=== PATIENT | male | born 2000 | race African-American/Black ===

== ENCOUNTER 2025-04-10 17:25 | Emergency (ER) | payer OTHER, SELFPAY ==
[2025-04-10] VITALS (9 sets, daily range): BP systolic 123–154; BP diastolic 71–95; PULSE 65–84; RESP 15–20; TEMP 36.4; O2SAT 97–100; BMI 20.8
--- NOTE | 2025-04-10 17:50 | RAD_ITS ---
PROCEDURE: CHEST 1 VIEW (PORTABLE) 04/10/2025 REASON FOR EXAM: CHEST PAIN TECHNIQUE: Frontal view of the chest. FINDINGS: No focal consolidation. No pleural effusion or pneumothorax. Cardiac silhouette is within normal limits. No acute fractures. RAD/Chest 1 View (Portable) IMPRESSION: No focal consolidations. Reading Location: [id number]
--- NOTE | 2025-04-10 17:51 | EKG12_ITS ---
Test Reason : Blood Pressure : */* mmHG Vent. Rate : 69 BPM Atrial Rate : 70 BPM P-R Int : 150 ms QRS Dur : 96 ms QT Int : 396 ms P-R-T Axes : 65 96 66 degrees QTcB Int : 424 ms Normal sinus rhythm with sinus arrhythmia Rightward axis Borderline ECG Confirmed by LUIS GILLIAM, MODESTO ([id number]), staff editor CAM TRACY ([id number]) on 04/11/2025 8:38:37 AM Referred By: Confirmed By: MODESTO SMITH MD
--- NOTE | 2025-04-10 18:11 | EDS_ITS ---
HPI History of Present Illness Chief Complaint: Chest Pain [facility] Medical History no medical history Home Medications ?Medication ?Instructions ?Recorded ?Last Taken ?Type betamethasone dipropionate 0.05 % 1 appful TP BID ##15 12/15/16 Unknown Rx topical cream prednisone 20 mg tablet 60 mg (3 x 20 mg) PO DAILY # #12 12/15/16 Unknown Rx Allergy/AdvReac Type Severity Reaction Status Date / Time bee venom protein (honey bee) Allergy Angioedema Verified 04/10/25 17:26 Social History Smoking Status: Never smoker EXAM Physical Exam Const Vital Signs: 04/10/25 17:27 04/10/25 17:48 04/10/25 17:51 Temperature 97.5 F L Temperature Source Temporal Pulse Rate 66 Respiratory Rate 20 H Respiratory Effort Normal Blood Pressure 123/80 H Blood Pressure Mean 94 Pulse Ox 97 Oxygen Delivery Method Room Air Room Air 04/10/25 17:56 04/10/25 18:00 04/10/25 18:15 Temperature Temperature Source Pulse Rate 70 68 68 Respiratory Rate 15 19 H 16 Respiratory Effort Blood Pressure 150/71 H 144/82 H Blood Pressure Mean 93 99 Pulse Ox 100 100 100 Oxygen Delivery Method Room Air Room Air 04/10/25 18:30 04/10/25 18:45 04/10/25 19:00 Temperature Temperature Source Pulse Rate 74 68 Respiratory Rate 17 18 Respiratory Effort Blood Pressure 147/81 H 154/85 H 154/85 H Blood Pressure Mean 98 103 108 Pulse Ox 98 100 Oxygen Delivery Method Room Air Room Air 04/10/25 20:00 Temperature Temperature Source Pulse Rate 84 Respiratory Rate 18 Respiratory Effort Blood Pressure 150/95 H Blood Pressure Mean 113 Pulse Ox 100 Oxygen Delivery Method Room Air MDM MDM MDM Narrative Medical decision making narrative: HISTORY OF PRESENT ILLNESS: Chief complaint: Chest pain 25-year-old male presents with chest pain. States it started at rest and radiates down his arm. He further states pain is not exertional. He denies pain at this time. Denies cough fever chills. Denies leg swelling. Denies bleeding diathesis. Denies falls or trauma. The patient denies recent surgery in the last 4 weeks or immobilization in the last 3 days, denies previous diagnosis of DVT or PE, hemoptysis, unilateral leg swelling or malignancy with treatment the last 6 months or palliative. No estrogen use noted. Patient denies sudden onset of pain, no tearing sensation, no migratory symptoms, no new numbness, weakness or loss of sensation. Patient denies family history or personal history of Connective tissue disorders (Marfan's Syndrome, Sammy Danlos etc) REVIEW OF SYSTEMS: Pertinent positives: Chest pain Pertinent negatives: Shortness of breath, cough PHYSICAL EXAM: Nursing triage notes reviewed, Vital signs reviewed Constitutional: please see [facility] HENT: MMM Eyes: Pupils equal round and reactive to light, Extraocular muscles intact Neck: No stridor, no JVD, full neck ROM Lungs: Clear to auscultation, No wheezing or rales. No increased work of breathing, no conversational dyspnea, no accessory muscle use, no nasal flaring. No respiratory distress noted Heart: Regular rate and rhythm, No murmurs, No rubs and No gallops, 2+ distal pulses (radial, femoral, posterior tibial) in all extremities Abdomen: Soft, there is no tenderness, rigidity, rebound or guarding, no obvious peritoneal signs, no palpable pulsatile abdominal masses, no auscultated abdominal bruit : No CVAT Extremities: No edema Neuro: No new focal neurological deficits, cranial nerves II through XII intact, 5/5 strength in all present extremities. Intact sensation to light touch in all present extremities, 2+ reflexes bilateral patella tendons. Skin: No rash or lesions noted MEDICAL DECISION MAKING: Chief Complaint: please see HPI External records reviewed: Reviewed Factors affecting care: none Social determinants of health: n denies illicit drug use History obtained from others: Stepmother Consults: none [facility] Narrative: Patient was initially hemodynamically stable, afebrile and nontoxic-appearing. Saturating at 97 on room air. Exam without focal cardiopulmonary abnormalities. No stigmata of VTE, CHF or dissection initial exam. I considered the following differential diagnosis: Musculoskeletal pain, costochondritis, ACS, arrhythmia, anemia, electrolyte disturbance, PE, aortic dissection I obtained broad lab and imaging evaluation to further determine if the patient was suffering from a life-threatening etiology. ALL IMAGES (IF OBTAINED) HAVE BEEN PERSONALLY REVIEWED AND INTERPRETED BY MYSELF. EKG with normal sinus rhythm rate of 69, normal axis, normal intervals, no STEMI, no sign of ARVD, Brugada syndrome or WPW High-sensitivity troponin is negative, no evidence of myocardial ischemia x 2 which effectively rules out ACS per [facility] high-sensitivity protocol CBC without leukocytosis, severe anemia, no thrombocytopenia. BMP without evidence of significant electrolyte abnormalities, no anion gap, no acute kidney injury. I have personally reviewed the patient's chest x-ray. Chest x-ray is unremarkable for pulmonary edema, pneumothorax, pneumonia or focal cardiopulmonary abnormality. The synthesis of the patient's history, physical exam, labs images suggest no acute life-limiting etiology. On reassessment patient remained chest pain-free. His vitals remained stable. I considered pulm embolism and aortic dissection as potential etiologies given patient's reported chest pain these diagnoses are not consistent with history and physical exam. The patient and/or family, caregivers express understanding. The patient and/or family, caregivers agrees with the plan. Shared decision making: I will have a discussion with the patient and or visitors regarding risk/benefits of further testing or admission. They will be made aware of of the risk/benefits inherent in this decision they will be given the opportunity to voice understanding. Total critical care time today provided was at least 0 minutes. This excludes separately billable procedures. Critical care time (if documented) is secondary to the patient having high probability of clinically significant/life threatening deterioration in the patient's condition which required my urgent intervention. Impression: 1. Chest pain Dispo: Discharge This note was generated with [employer] dictation software. It may contain incorrect words, spelling, and punctuation that were not noted in review of the chart prior to signing. Lab Data Labs: Laboratory Results - last 24 hr 04/10/25 04/10/25 17:45 19:38 WBC 9.1 RBC 5.14 Hgb 13.8 Hct 39.9 L MCV 77.6 L MCH 26.8 L MCHC 34.6 RDW Std Deviation 38.8 RDW Coeff of Ruel 13.7 Plt Count 219 MPV 9.9 Immature Gran % (Auto) 0.100 Neut % (Auto) 71.0 H Lymph % (Auto) 21.9 Briscoe % (Auto) 5.8 Eos % (Auto) 1.0 Baso % (Auto) 0.2 Absolute Neuts (auto) 6.5 Absolute Lymphs (auto) 2.00 Nucleated RBC % 0 Sodium 140 Potassium 3.8 Chloride 102 Carbon Dioxide 22.7 Anion Gap 15 BUN 14 Creatinine 1.02 Estim Creat Clear Calc 122.57 Est GFR (MDRD) Non-Af 105 BUN/Creatinine Ratio 13.9 Glucose 128 H Calcium 9.2 Troponin T High Sens < 6 Troponin T Hi Sens 2 Hr < 6 Radiography Diagnostic Testing: Clinical Impression(s) from Imaging Studies Chest X-Ray 04/10/25 17:50 IMPRESSION: No focal consolidations. Reading Location: [facility] Discharge Plan Triage Chief Complaint: Chest Pain ED Provider: Alexx Steinberg Dx/Rx/DC Orders Instructions: ED Chest Pain, Uncertain Cause Prescriptions: No Action prednisone 20 MG tablet 60 mg PO DAILY Qty: 12 0RF betamethasone dipropionate 15 GM cream 1 appful TP BID Qty: 15 0RF Primary Care Provider: Giovany Hughes Referrals: Giovany Hughes MD [Primary Care Provider, Pediatrics] Activity Restrictions/Additional Instructions: Thank you for trusting us with your care today! Your labs images were reassuring. Specifically showed no sign of heart damage, lung damage or other life-threatening pathologies. The cause of your symptoms remains unclear however it does not represent something that requires hospitalization or other testing at this time. You are safe for discharge home Please take Tylenol (2 pills, 650 mg), ibuprofen (2 pills, 400 mg) every 6 hours as needed for pain and fever control. Please return to the emergency department if your symptoms change or worsen. Please follow with your primary care physician for further outpatient evaluation and management. Print Language: Turkmen Disposition Disposition: Home, Self Care
[2025-04-10 18:18] LABS: Hematocrit 39.9 % (40-54); Hemoglobin 13.8 g/dL (13.0-16.5); Immature Granulocytes Count 0.010 X10^3/uL (0.0-0.0); Mean Corp Hgb Conc 34.6 g/dL (32-36); Mean Corpuscular Volume 77.6 fL (80-94); Mean Platelet Vol. 9.9 fl (6.2-12.0); NRBC Flagged by Analyzer 0 % (0-5); Platelet Count 219 K/mm3 (150-450); RBC Distribution Width CV 13.7 % (11.6-14.6); RBC Distribution Width SD 38.8 fl (35.1-43.9); Red Blood Count 5.14 M/mm3 (4.6-6.2); White Blood Count 9.1 K/mm3 (4.4-11.0)
[2025-04-10 18:28] LABS: Anion Gap 15 (5-15); BUN 14 mg/dL (4-19); BUN/Creat Ratio 13.9 RATIO (10-20); Calcium,Total 9.2 mg/dL (7.6-11.0); Carbon Dioxide 22.7 mmol/L (21.0-32.0); Chloride 102 mmol/L (98-108); Estimated Creatinine Clearance 122.57 ml/min (50-250); Glucose 128 mg/dL (70-99); Potassium 3.8 mmol/L (3.3-5.1); Troponin T High Sensitivity < 6 ng/L (<=22)
--- OUTSIDE RECORDS SUMMARY | 2025-04-10 18:48 | XMS RPT_ITS | CCD ---
Author Organization [facility] CliniSyut Care Team Providers Care Police Liaison Officer Name Role Phone GIOVANY HUGHES Unavailable Unavailable MEGHAN TOLEDO ([facility]) Unavailable Unavailable Jimmy Harper Unavailable Unavailable Giovany Hughes Unavailable Unavailable Allergies Allergy Classification Reported Allergen(s) Allergy Type Date of Onset Reaction(s) Facility (1 source) bee venom protein (honey bee) Drug allergy (disorder) 12-15-2016 [facility] Repository Problems Problem Classification Problem Date Documented Da te Episodic/Chronic Unclassified (1 source) Unknown / UNK(Unknown) Onset: 03-28-2017 Results Test Name Value Interpretation Reference Range Facility OV 04-29-2017 CNOV Office Visit (PEDSWS) -ABEL PLASCENCIA ([id number]) 01 MDate Time Provider Xxkwpdhnjc96/24/17 8:00 AM MEGHAN TOLEDO (MATTHEW) PEDSWS During your visit today, we recorded the following information about you: Temperature Pulse Respiration Blood pressure 97.3 degrees 84/minute 16/minute 120/60 Weight Height 66.3 kg 1.87 Rizwana Toledo CNP 04/29/2017 8:40 AM Nbftwk28 year old male presents for a routine 12+ year check-up. [] GENERAL QUESTIONS color enhancedsectionPatient concerns: NONEParental concerns: NONEDiet: milk: 2%; balanced diet; specific issues: NONEStools: NORMAL (soft and appropriately sized)Urine: NO PROBLEMSFluorideWater: uses significant amount of ANDquot;cityANDquot; water from: [facility] - optimum level (use recommendations for levels of ANDgt;0.6 ppm),adjusted/purchase (2011)Prescription: age 12-16 years - not using prescribed fluorideOngoing subspecialty care: NONEOngoing ancillary care: NONESchool/etc: 10th, doing well, grades A-B, C.Interests ANDamp; Activities: basketball, trackSignificant stresses: No [] SPORTS QUESTIONS color enhancedsectionHistory of seizures: NoHistory of concussion: NoHistory of syncope: NoHistory of heart problems: NoHistory of hypertension: NoHistory of asthma: NoHistory of single kidney: NoHistory of skeletal problems: NoHistory of any significant injury: Yes, overdose as toddlerFamily history of either heart problems or sudden ANDlt;age 40 years: No MEDICAL HISTORYPast medical history:IMPORTEDPAST MEDICAL HISTORYDiagnosis Date- 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 4th digit right handIMPORTEDPAST SURGICAL HISTORYProcedure Laterality Date- CIRCUMCISION,OTHR,- PAST SURGICAL HISTORY OF 2001 Had bump removed from buttock areaFamily history:IMPORTEDFAMILY HISTORYProblem Relation Age of Onset- Hypertension Mother- GI Mother Acid Reflux- Other [OTHER] Mother Scoliosis (mild)- None Father- Diabetes Maternal Grandmother- Breast Cancer Maternal Grandmother- Cancer Maternal Grandmother Thyroid- Hypertension Maternal Grandfather [] SOCIAL HISTORY colorenhanced sectionSexual activity: NoSubstance abuse and smoking: NoHigh risk behaviors: NONEMental health: POSITIVE OUTLOOKSocial history obtained when patient was alone [] MISCELLANEOUS colorenhanced sectionDifficulties with learning for patient: No VISION ANDamp; HEARING ASSESSMENTEye doctor visit within the past year: YesHearing concerns: No [] ADDITIONAL NURSING COMMENTS color enhanced sectionLidia Peres [facility] reviewed and Negative. PHYSICAL EXAM (to re-import BP% use.BPFA)Blood pressure: Blood pressure percentiles are 48.2 % systolic and 24.3 %diastolic based on NHBPEP's 4th Report. (This patient's height is above moq24rf percentile. The blood pressure percentiles above assume this patient to bein the 95th percentile.)General: alert and active in no apparent distressHead: normalEyes: conjunctivae/corneas clear. PERRL, EOM's intact.Ears: External ears normal. Canals clear. TM's normal.Nose: Nares normal. Septum midline. Mucosa normal.Oropharynx: Lips, mucosa, and tongue normal. Teeth and gums normal. Oropharynxnormal.Neck: Neck supple, no adenopathy; thyroid symmetric, normal sizeBack: Back symmetric, no curvature to very sl curve thoracic to rightLungs: Lungs clear to auscultation.Heart: RRR , Normal S1 and S2.,No murmursBreast: no abnormality notedAbdomen: Abdomen soft, non-tender. BS normal. No masses, organomegalyGenitalia: MALE: Penis normal. No penile lesions. Testicles palpated andnormal., Ramin stage IV-V, no herniaExtremities: Extremities normal. No deformities, edema, or skin discoloraMusculoskeletal: Extremities with FROM and no problems identified.Neuro: subtle tone increased UE and LE (since the ANDquot;comaANDquot; at 19months), No focal deficits or abnormal findings presentSkin: No significant lesions [] ASSESSMENT colorenhanced sectionWell patientNormal growth with Developmental Anomaly since 19 months PLANPlan per orders.Counseling: seat belts, bike ANDamp; motorcycle helmets, water safety,sunscreen power tools, firearms exercise, sports safety 2% (or less) milk, balanced diet, limit sugar and high fat foods dental care adequate sleep, limit TV / video and computer games social interactions with family and peers school issues drug, alcohol and tobacco use sexual activity and control mental health and abuse / domestic violence issuesForms filled out: sportsFollow up visit in 1 year for routine care or prn with concerns.I have reviewed the above nursing obtained HPI and I concur.Kevin Fernandez CNP 04/29/2017 8:39 AM SignedReviewed results of visit w/ patient/Grparent. Verbalize understanding.Referring Provider: SELF [200]Allergies As of Date: 04/29/2017(No Known Allergies)Date Reviewed: 04/29/2017Reviewed by: Meghan García (Matthew) Clive - Fully AssessedReason for Visit: Physical [83]Primary Visit Diagnosis:Encounter for immunization [Z23] Other Visit Diagnosis:Encounter for routine child health examination without abnormal findings [Z00.129]Order(s):MENINGOCOCC AL CONJUGATE [id number], IM [[id number]] Order #: [id number] HUMAN PAPILLOMAVIRUS 9-VALENT HPV IM [[id number]] Order #: [id number] INFLUENZA VACCINE QUADRIVALENT AGE 3 YRS PLUS + IM [[id number]] Order #: [id number] List As Of Date 04/29/2017 Noted Resolved Closed fracture of middle phalanx of fourth fin*INVALID FOR*02/25/2014 Developmental anomaly [Q89.9] Other instructions from your clinician: Reviewed results of visit w/ patient/Grparent. Verbalize understanding.Disposition: Return in about 1 year (around 04/29/2018) for well.Follow-up and Disposition History RecordedLetter TextWoosterKim Boston, C.L.C.Department of [address] [place] [address]Bnknf: Fax: [facility] 2016To whom it may concern:Abel Plascencia was seen in the office today for well patient care. Pleaseexcuse.The following restrictions should be observed: none.Sincerely, Status:Closed by MEGHAN TOLEDO CNP on 04/29/17 Normal [facility] PROGRESSon 04-29-2017 PROGRESS HNO ID: [id number] thor: Meghan García (Matthew) CliveService: (none)Author Type: Nurse PractitionerType: Progress NotesFiled: 04/29/2017 8:40 AMNote Text:17 year old male presents for a routine 12+ year check-up. [] GENERAL QUESTIONS colorenhanced sectionPatient concerns: NONEParental concerns: NONEDiet: milk: 2%; balanced diet; specific issues: NONEStools: NORMAL (soft and appropriately sized)Urine: NO PROBLEMSFluorideWater: uses significant amount of city water from: [facility] -optimum level (use recommendations for levels of >0.6 ppm),adjusted/purchase (2011)Prescription: age 12-16 years - not using prescribed fluorideOngoing subspecialty care: NONEOngoing ancillary care: NONESchool/etc: 10th, doing well, grades A-B, C.Interests AND Activities: basketball, trackSignificant stresses: No [] SPORTS QUESTIONS colorenhanced sectionHistory of seizures: NoHistory of concussion: NoHistory of syncope: NoHistory of heart problems: NoHistory of hypertension: NoHistory of asthma: NoHistory of single kidney: NoHistory of skeletal problems: NoHistory of any significant injury: Yes, overdose as toddlerFamily history of either heart problems or sudden Normal [facility] CNPNon 03-31-2017 CNPN Telephone (PEDSWS) -ABEL PLASCENCIA ([id number]) 01 MDate Time Provider Department03/31/17 GIOVANY HUGHES During your visit today, we recorded the following information about you:Giovany Hughes MD 03/31/2017 11:57 AM SignedPlease notify the patient/family of the results below. Unless otherwisespecified, the results are within acceptable limits for age.Strep PCR was positive. Patient needs to be on antibiotics. A prescription ofamoxicillin was printed and will need to be called into the pharmacy (nopharmacy was listed in the computer).No additional results are pending.Gary Wilder LPN 03/31/2017 12:24 PM Signedspoke with grandparentparent/patient. expresses understanding. rx fax[facility] per g-gma requestMariela Nicole RN 03/31/2017 12:27 PM SignedMother states that the school is requesting a note be faxed regarding below.Note created and placed at desk for signature, if in agreement. Please fax [phone].Charley Hughes MD 03/31/2017 2:12 PM SignedLetter reviewed/completed and signed.David Wilder RN, RN 03/31/2017 2:18 PM Signedletter faxed, confirmation receivedVidhi Saclido As of Date: 03/31/2017(No Known Allergies)Date Reviewed: 03/28/2017Reviewed by: Giovany Hughes - Fully AssessedReason for Visit: Results (not normal) [Other]Order(s):amoxicillin (AMOXIL) 250 mg/5 mL suspensionTake 10 mL by mouth twice daily for 10 days.Disp: 200 mLRfl: 0Prescriptions as of 03/31/2017 Sig: AMOXICILLIN 250 MG/5 ML ORAL * Take 10 mL by mouth twice shweta*Problem List As Of Date 03/31/2017 Noted Resolved Closed fracture of middle phalanx of fourth fin*INVALID FOR*02/25/2014 Developmental anomaly [Q89.9]Prescriptions ordered this encounter Disp Refills Start End AMOXICILLIN 250 MG/5 ML ORAL SUSPENS* 200 * 0 03/31/2017 04/10/2017 Class: Print RX Route: ORAL Sig: Take 10 mL by mouth twice daily for 10 days.Letter Hill Hughes M.D., F.A.A.P.Department of [address] [place], [place] [address]Qqydb: Fax: September 2016Abel Korina Naomy 2001To Whom It May Concern:Patient has strep throat and needs to be out of school until 24 hours afterstarting antibiotic.Sincerely,[facility] Number: [id number] Status:Closed by AYAZ NASH LPN on 03/31/17 Normal [facility] Group A Strep by PCRon 03-29 GAS Specimen Source Throat Swab Normal [facility] Comment on above: Performed By: #### GASPCR ####[id number] [place], [place] [phone] Group A Strep PCR Positive Critically abnormal [facility] Comment on above: Result Comment: This test was developed and its performance characteristics determined by [facility] [place] ([facility]).It has not been cleared or approved by the FDA. [facility] is regulated under CLIA as qualified to perform high-complexity testing. This test is used for clinical purposes. It should not be regarded as investigational or for research. Performed By: #### G ASPCR ####[facility] [place], [place] [phone] CNOVon 03-28-2017 CNOV Office Visit (PEDSWS) -ABEL PLASCENCIA ([id number]) 01 M UPADate Time Provider Department03/28/17 3:15 PM GIOVANY HUGHES During your visit today, we recorded the following information about you: Temperature Pulse Respiration Blood pressure 98 degrees 76/minute 18/minute 120/68 Weight 67.6 kgGiovany Hughes MD 03/28/2017 4:13 PM SignedThe patient was seen for the issues discussed below.Problem list and history reviewed.Allergies reviewed.Medications reviewed.Immunizations reviewed.HISTORY:see history section belowPHYSICAL EXAM:GENERAL: alert, well appearing, in no distressLEFT EYE: no drainage noted, no conjunctival injection noted; RIGHT EYE: nodrainage noted, no conjunctival injection noted; NO ADDITIONAL EYE FINDINGSLEFT EAR: pinna normal, auditory canal normal, tympanic membrane clear, noeffusion noted, RIGHT EAR: pinna normal, auditory canal normal, tympanicmembrane clear, no effusion notedNOSE/SINUSES: nares normal, mucosa normal, congestedOROPHARYNX: lips without lesions noted, gums/mucosa normal, pharyngeal erythema(trace)NECK/ADENOPATH Y: neck supple, no adenopathy notedCHEST/LUNGS: lungs clear to auscultationCARDIOVASCULAR: regular rate and rhythm, capillary refill less than 2 secondsABDOMEN: soft, nontender, bowel sounds normal, no masses, no organomegaly,abdomen nondistendedSKIN: normal color, no rash, no jaundice, moist mucous membranes, turgor withinnormal limitsGENERAL RECOMMENDATIONS:- Issues discussed in detail.- Symptom relief measures as needed.- Prescriptions, if ordered, are listed below.- Labs and/or X-rays, if ordered or obtained, are listed below. If the finalresults are not available at the conclusion of this visit, then additionalrecommendations may be made based on the final results. Note that all x-raysare reviewed by a radiologist before being considered final.- EKG, if ordered or obtained, is reviewed by a solvent mixer before beingconsidered final. Additional recommendations may be made based on the finalresults.- Return to clinic should current symptoms (if present) worsen, other problemsdevelop, or as needed.ADDITIONAL ANDamp; DICTATED PORTION:ADDITIONAL HISTORY The following Nursing History was reviewed with the family:Patient presents with:Headache: x 3 day'sNasal Drainage: x 3 day'sSosret Throat: x 3 day's Intermittent Sore throat has been intermittent. None at this moment. Hoarse voice present. Decreased hearing. White nasal drainage. Frontal headache. Abdominal painhas been present.No fever. No eye complaints. No cough, wheezing, shortness of breath. Novomiting or diarrhea. No rash.ADDITIONAL EXAM / OTHER INFORMATIONRapid strep test negativeADDITIONAL IMPRESSION / PLANSymptoms secondary to a viral syndrome or allergies. Symptom relief measures.Strep PCR sent as a precaution.Time, established: Spent approx. 15+ minutes (13489 level) in qmhh-oh-pcawtgxblep with the patient and/or family, more than half of which was devoted todiscussing the above problems.This note was partially generated using P[employer] Eyes voice recognition system, andthere may be some incorrect words, spellings, and punctuation that were notnoted in checking the note before saving.Giovany Hughes M.D.Giovany Hughes MD 03/28/2017 4:19 PM Signed 5 to Go!TM Healthy Kids InsideANDamp; Out 5 Eat FIVE fruits and veggies a day4 Give and get FOUR compliments a day3 Consume THREE calcium products a day2 Limit media time to TWO hours a day1 Get at least ONE hour of exercise a day0 Consume ZERO sugar-sweetened drinksGo! Be healthy, inside and out!www.[facility].org/5 toGo Get tips for raising a healthier family. Sign up for Parents Be Welle-newsletter at [facility].org/ parentsbewell Explore our services, locations and more at [facility].org Find a wealth of family health ANDamp; wellness tips atccorey hospital.or g/healthhub Like us on Facebook at TakeCare.[employer] Nissa Hughes MD 03/28/2017 4:19 PM SignedAddended by: GIOVANY HUGHES MD on: 03/28/2017 04:19 PM Modules accepted: SmartSetReferring Provider: SELF [200]Allergies As of Date: 03/28/2017(No Known Allergies)Date Reviewed: 03/28/2017Reviewed by: Giovany Hughes - Fully AssessedReason for Visit: Headache [52] Cmt: x 3 day's Nasal Drainage [Other] Cmt: x 3 day's Sosret Throat [Other] Cmt: x 3 day's IntermittentReason For Visit History RecordedPrimary Visit Diagnosis:Pain in throat [R07.0] Other Visit Diagnosis:Nasal congestion [R09.81]Order(s):RAPID STREP TEST B/O [[id number]] Order #: [id number] GROUP A STREPTOCOCCUS BY PCR [SQGASPCR] Order #: [id number] List As Of Date 03/28/2017 Noted Resolved Closed fracture of middle phalanx of fourth fin*INVALID FOR*02/25/2014 Developmental anomaly [Q89.9] Other instructions from your clinician: 5 to Go!TM Healthy Kids Inside AND Out 5 Eat FIVE fruits and veggies a day 4 Give and get FOUR compliments a day 3 Consume THREE calcium products a day 2 Limit media time to TWO hours a day 1 Get at least ONE hour of exercise a day 0 Consume ZERO sugar-sweetened drinks Go! Be healthy, inside and out! www.[facility].org/5toGo Get tips for raising a healthier family. Sign up for Parents Be Well e-newsletter at [facility].org/ parentsbewell Explore our services, locations and more at [facility].org Find a wealth of family health AND wellness tips at [facility].org/ [employer] S.[employer]. de C.V.b Like us on Facebook at TakeCare.[employer]/Archer Pharmaceuticalsmarymount hospitalDropmysite Ronnie Hughes M.D., F.A.A.P.Department of [address] [place] [address]Zpstp: Fax: Sept2016To Whom It May Concern:Abel Plascencia was seen in the office today. Please excuse.Sincerely, Status:Closed by GIOVANY HUGHES MD on 03/28/17 Normal [facility] PROGRESSon 03-28-2017 PROGRESS HNO ID: [id number] thor: Giovany Martinezervice: (none)Author Type: PhysicianType: Progress NotesFiled: 03/28/2017 4:13 PMNote Text:The patient was seen for the issues discussed below.Problem list and history reviewed.Allergies reviewed.Medications reviewed.Immunizations reviewed.HISTORY:see history section belowPHYSICAL EXAM:GENERAL: alert, well appearing, in no distressLEFT EYE: no drainage noted, no conjunctival injection noted; RIGHT EYE:no drainage noted, no conjunctival injection noted; NO ADDITIONAL EYEFINDINGSLEFT EAR: pinna normal, auditory canal normal, tympanic membrane clear, noeffusion noted, RIGHT EAR: pinna normal, auditory canal normal, tympanicmembrane clear, no effusion notedNOSE/SINUSES: nares normal, mucosa normal, congestedOROPHARYNX: lips without lesions noted, gums/mucosa normal, pharyngealerythema (trace)NECK/ADENOPATHY: neck supple, no adenopathy notedCHEST/LUNGS: lungs clear to auscultationCARDIOVASCULAR: regular rate and rhythm, capillary refill less than 2secondsABDOMEN: soft, nontender, bowel sounds normal, no masses, no organomegaly,abdomen nondistendedSKIN: normal color, no rash, no jaundice, moist mucous membranes, turgorwithin normal limitsGENERAL RECOMMENDATIONS:- Issues discussed in detail.- Symptom relief measures as needed.- Prescriptions, if ordered, are listed below.- Labs and/or X-rays, if ordered or obtained, are listed below. If thefinal results are not available at the conclusion of this visit, thenadditional recommendations may be made based on the final results. Notethat all x-rays are reviewed by a radiologist before being consideredfinal.- EKG, if ordered or obtained, is reviewed by a solvent mixer before beingconsidered final. Additional recommendations may be made based on thefinal results.- Return to clinic should current symptoms (if present) worsen, otherproblems develop, or as needed.ADDITIONAL AND DICTATED PORTION:ADDITIONAL HISTORY The following Nursing History was reviewed with the family:Patient presents with:Headache: x 3 day'sNasal Drainage: x 3 day'sSosret Throat: x 3 day's Intermittent Sore throat has been intermittent. None at this moment. Hoarse voicepresent. Decreased hearing. White nasal drainage. Frontal headache.Abdominal pain has been present.No fever. No eye complaints. No cough, wheezing, shortness of breath.No vomiting or diarrhea. No rash.ADDITIONAL EXAM / OTHER INFORMATIONRapid strep test negativeADDITIONAL IMPRESSION / PLANSymptoms secondary to a viral syndrome or allergies. Symptom reliefmeasures. Strep PCR sent as a precaution.Time, established: Spent approx. 15+ minutes (47065 level) thtzpy-ve-bhtt contact with the patient and/or family, more than half ofwhich was devoted to discussing the above problems.This note was partially generated using [employer] Eyes voice recognition system,and there may be some incorrect words, spellings, and punctuation thatwere not noted in checking the note before saving.Giovany Hughes M.D. Normal [facility] Encounters Encounter Date Encounter Type Care Provider Facility Start: 04-29-2017 End: 05-01-2017 Ambulatory MEGHAN TOLEDO [facility] Start: 03-28-2017 End: 04-01-2017 Ambulatory GIOVANY HUGHES [facility] Start: 12-15-2016 End: 12-15-2016 Emergency department patient visit Jimmy Harper Facility:[facility] Payers Date Payer Category Payer Policy ID Unknown [id number] Summary Purpose Family History No Family History Records FoundNo Family History Records Found Advance Directives No Advanced Directives Records FoundNo Advanced Directives Records Found Additional Source Comments (unrecognized sect ion and content) No Status Records FoundNo Status Records Found INFORMATION SOURCE (unrecogn ized section and content) DATE CREATED AUTHOR 12/30/2017 [facility] DATE CREATED AUTHOR AUTHOR'S CHRIS BRIGGS 12/31/2017 [facility] FOR RECORDS PERTAINING TO PATIENTS WHO ARE OR HAVE BEEN ENROLLED IN A CHEMICAL DEPENDENCY/SUBSTANCEABUSE PROGRAM, SOME INFORMATION MAY BE OMITTED. This clinical summary was aggregated from multiple sources. Caution should be exercised in using it in the provision of clinical care. This summary normalizes information from multiple sources, and as a consequence, information in this document may materially change the coding, format and clinical context of patient data. In addition, data may be omitted in some cases. CLINICAL DECISIONS SHOULD BE BASED ON THE PRIMARY CLINICAL RECORDS. [employer] [facility]. provides no warranty or guarantee of the accuracy or completeness of information in this document.
[2025-04-10 20:05] LABS: Troponin T High Sens 2 HR < 6 ng/L (<=22)
== END 2025-04-10 21:02 | disposition home or self-care (01) ==
PROVIDERS: Emergency Provider Emergency Medicine; PCP Pediatrics; Visit Provider Emergency Medicine
DX: R07.9 Chest pain, unspecified (principal)
CPT/HCPCS: 71045; 80048; 84484; 85025; 93005; 99284; A4216